=== PATIENT | female | born 1960 | race Caucasian/White ===

== ENCOUNTER 2020-06-22 10:00 | Outpatient (CLI) | payer OTHER, SELFPAY ==
--- NOTE | 2020-06-22 10:51 | XR_ITS ---
WS: [id number] Exam: XR shoulder LT min 2V* [id number] Date/Time of Exam: 06/22/2020 11:09 AM Reason For Exam: BILATERAL SHOULDER PAIN No acute fracture or dislocation. Degenerative change at the AC joint. Normal soft tissues. XR/XR shoulder LT min 2V* [id number] IMPRESSION: 1. Mild AC joint DJD.
--- NOTE | 2020-06-22 10:51 | XR_ITS ---
WS: [id number] Exam: XR hip RT 2-3V wo/w pel* [id number] Date/Time of Exam: 06/22/2020 11:09 AM Reason For Exam: UPPER LEG PAIN No acute fracture or dislocation. Moderate osteoarthritis the joint compartment. Several subcortical cysts are noted in the femoral head. Soft tissues are unremarkable. XR/XR hip RT 2-3V wo/w pel* [id number] IMPRESSION: 1. Moderate degenerative change. No fracture or dislocation.
--- NOTE | 2020-06-22 10:51 | XR_ITS ---
WS: [id number] Exam: XR shoulder RT min 2V* [id number] Date/Time of Exam: 06/22/2020 11:09 AM Reason For Exam: BILATERAL SHOULDER PAIN No acute fracture. There is DJD at the AC joint and mild bone spurring along the inferior margin of t he distal clavicle. Degenerative subcortical cyst formation in the humeral head. Normal soft tissues. XR/XR shoulder RT min 2V* [id number] IMPRESSION: 1. Degenerative changes and osteopenia. 2. No fracture noted.
--- NOTE | 2020-06-22 10:51 | XR_ITS ---
WS: [id number] Exam: XR lumbar spine 2-3V* [id number] Date/Time of Exam: 06/22/2020 11:09 AM Reason For Exam: ACUTE BILATERAL LOW BACK PAIN W/R SIDED SCIATICA No acute fracture or dislocation. Degenerative vacuum disc at L5-S1. Mild spondylosis. Posterior poarch ents are intact. Osteopenia. XR/XR lumbar spine 2-3V* [id number] IMPRESSION: 1. Degenerative changes and osteopenia. 2. No fracture or malalignment.
--- NOTE | 2020-06-22 10:51 | XR_ITS ---
WS: [id number] Exam: XR cervical spine 3V* [id number] Date/Time of Exam: 06/22/2020 11:09 AM Reason For Exam: NECK PAIN No acute fracture or dislocation. Degenerative disc changes at 5 6 and 6 7 with spondylosis. Facet ar thropathy at all levels. The odontoid is intact. Normal paraspinal soft tissues. XR/XR cervical spine 3V* [id number] IMPRESSION: 1. No fracture or dislocation. 2. Degenerative changes.
== END 2020-06-22 10:01 | disposition home or self-care (01) ==
PROVIDERS: PCP Family Medicine; Visit Provider Nurse Practitioner
DX: M54.2 Cervicalgia (principal); M25.512 Pain in left shoulder; M25.511 Pain in right shoulder; M19.012 Primary osteoarthritis, left shoulder; M85.88 Other specified disorders of bone density and structure, other site
CPT/HCPCS: 72040; 72100; 73030; 73502